=== PATIENT | male | born 1995 | race Caucasian/White ===

== ENCOUNTER 2022-01-15 18:55 | Emergency (ER) | payer OTHER, SELFPAY ==
[2022-01-15 19:47] VITALS: BP 110/53; PULSE 98; RESP 18; TEMP 38; O2SAT 98; BMI 22.6
== END 2022-01-15 22:18 | disposition left against medical advice (07) ==
PROVIDERS: Emergency Provider Emergency Medicine
DX: R50.9 Fever, unspecified (principal); R10.9 Unspecified abdominal pain
CPT/HCPCS: 99281